=== PATIENT | female | born 1965 | race Caucasian/White ===

== ENCOUNTER 2018-11-30 09:56 | Emergency (ER) | payer SELFPAY ==
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
--- NOTE | 2018-11-30 10:53 | RAD ---
EXAM DESCRIPTION: Chest,1 View CLINICAL HISTORY: CHEST PAIN COMPARISON: March 08, 2008 IMPRESSION: Single AP portable upright view of the chest shows cardiac silhouette and pulmonary vasculature to be within normal limits. Lungs are normally aerated and clear. No obvious pleural effusion or pneumothorax is seen. Electronically signed by: Selwyn Albarado MD 11/30/2018 10:52 AM REPRESENTATIVE
[2018-11-30 11:14] VITALS: O2SAT 97
[2018-11-30 11:26] VITALS: BP 153/87; TEMP 98.1
== END 2018-11-30 11:25 | disposition home or self-care (01) ==
LOC: ER 09:56
DX: R07.89 Other chest pain (principal); F41.0 Panic disorder [episodic paroxysmal anxiety]; Z88.2 Allergy status to sulfonamides; Z82.49 Family history of ischemic heart disease and other diseases of the circulatory system

== ENCOUNTER 2020-01-14 12:35 | Emergency (ER) | payer OTHER ==
[2020-01-14] MEDS ORDERED: KETOROLAC TROMETHAMINE INJ 30 MG/ML VIAL IV ONE (12:56)
[2020-01-14] MEDS ORDERED: MORPHINE SULFATE INJ 10 MG/ML VIAL IV ONE ×2 (12:56→19:33)
--- NOTE | 2020-01-14 13:32 | RAD ---
EXAM DESCRIPTION: Ankle,Right 3 Views CLINICAL HISTORY: 54 years Female, injury COMPARISON: None. FINDINGS: 2 views of the right ankle show lateral subluxation of the tibiotalar joint with displaced medial and lateral malleolar fractures. Displaced posterior malleolar fracture is also likely present. No lateral view. IMPRESSION: Slightly limited exam due to lack of a lateral view with a probable trimalleolar right ankle fracture/subluxation as detailed above. Electronically signed by: Willis Jimenez MD 01/14/2020 1:30 PM [facility]
--- NOTE | 2020-01-14 13:33 | RAD ---
EXAM DESCRIPTION: Foot,Right 3 Views CLINICAL HISTORY: 54 years Female, injury COMPARISON: None. FINDINGS: 3 views of the right foot again show fracture/lateral subluxation of the right tibiotalar joint including probable trimalleolar fracture. No additional right foot fracture. IMPRESSION: Trimalleolar right ankle fracture/subluxation. Electronically signed by: Willis Jimenez MD 01/14/2020 1:32 PM [facility]
--- NOTE | 2020-01-14 13:35 | RAD ---
EXAM DESCRIPTION: Tibia/Fibula,Right CLINICAL HISTORY: 54 years Female, injury COMPARISON: None. FINDINGS: 2 views of the right tibia and fibula show lateral subluxation of the tibiotalar joint with displaced lateral and medial malleolar fractures. There is an additional bone fragment projecting over the tibiotalar joint on the AP view possibly representing a slightly displaced posterior malleolar fracture. Calcaneal enthesophyte formation. Postoperative changes related to previous right knee are plastic, partially visualized. IMPRESSION: Lateral subluxation of the tibiotalar joint with trimalleolar or bimalleolar right ankle fracture. CT would be helpful for confirmation of the posterior malleolar fracture if clinically relevant. Electronically signed by: Willis Jimenez MD 01/14/2020 1:33 PM [facility]
--- NOTE | 2020-01-14 14:53 | RAD ---
EXAM: XR Right Ankle Complete, 3 or More Views CLINICAL HISTORY: post reduction TECHNIQUE: Frontal, lateral and oblique views of the right ankle. Images obtained at 2:39 PM. COMPARISON: 1:07 PM the same day. FINDINGS: Bones/joints: There is mild spurring of the plantar and Achilles surfaces of the calcaneus. No interval change in impacted fracture of the distal fibula and distracted fracture of the medial malleolus. Probable nondisplaced fracture of the posterior malleolus. Stable medial tibial subluxation. Soft tissues: There is diffuse soft tissue swelling. IMPRESSION: Stable position and alignment of trimalleolar fracture with impaction and medial tibial subluxation. Electronically signed by: Layla Galindo MD 01/14/2020 2:52 PM [facility]
--- NOTE | 2020-01-14 18:38 | CT ---
EXAM DESCRIPTION: CT Lower Extremity CLINICAL HISTORY: 54 years Female R ankle injury TECHNIQUE: Noncontrast axial images acquired through the right ankle. Coronal and sagittal reformatted images also provided. This CT exam was performed according to our departmental dose-optimization program, which includes one or more of the following dose reduction techniques: automated exposure control, adjustment of the mA and/or kV according to patient size, and/or use of iterative reconstruction technique. COMPARISON: Correlation made with the radiographs obtained earlier the same day. FINDINGS: There are acute, trimalleolar fractures of the right ankle. There is posterolateral displacement of the distal fibular diaphyseal fracture. There is external rotation at the ankle joint with an impaction fracture of the fibular tip. There is external and posterior rotation of the major posterior malleolar fracture fragment. There is lateral displacement of the talus and distal medial malleolar fracture fragment relative to the tibial plafond. There are impaction fractures at the anterolateral corner of the tibial plafond. There is no complete dislocation. Suspected impaction fracture at the anterolateral corner of the talar dome. Acute, nondisplaced, intra-articular fracture at the plantar base of the first metatarsal. Acute, sagittally oriented, nondisplaced fracture through the lateral sesamoid. No other visualized acute fracture in the right foot. However, the toes are incompletely imaged. Joint spaces of the foot are preserved. Pronounced soft tissue swelling about the right ankle without soft tissue gas or foreign body. Incidental note made of an accessory navicular and os peroneum. Plantar and posterior calcaneal enthesophytes. No aggressive osseous lesion. IMPRESSION: Acute, displaced, trimalleolar fractures of the right ankle without dislocation. Additional impaction fractures at the fibular tip, anterolateral corner of the tibial plafond, and anterolateral corner of the talar dome. Acute, nondisplaced, intra-articular fracture of the plantar base of the first metatarsal. Acute, nondisplaced sagittally oriented fracture through the lateral sesamoid. Electronically signed by: Tammy Lazaro MD 01/14/2020 6:[address] [facility]
[2020-01-14] MEDS ORDERED: ONDANSETRON INJ 4 MG/2 ML VIAL IV ONE (20:00)
--- NOTE | 2020-01-14 20:49 | RAD ---
EXAM DESCRIPTION: XR Ankle, Right 3 Views CLINICAL HISTORY: 54 years Female post reduction TECHNIQUE: Three views of the right ankle are provided. COMPARISON: Comparison is made with the examination performed at 2:39 PM the same day. FINDINGS: There has been placement of a fiberglass splint. Again seen are acute, trimalleolar fractures of the right ankle. There is stable lateral subluxation at the ankle joint measuring up to approximately 1 cm without dislocation. Surrounding soft tissue swelling without soft tissue gas or foreign body. The visualized joints of the foot are preserved. Posterior and plantar calcaneal enthesophytes. No aggressive osseous lesion. IMPRESSION: Interval placement of a fiberglass splint. Acute trimalleolar right ankle fracture is again noted with stable lateral subluxation at the ankle joint. No dislocation. Electronically signed by: Tammy Lazaro MD 01/14/2020 8:48 PM [facility]
--- NOTE | 2020-01-14 21:03 | ED.PDOC ---
History of Present Illness - General Chief Complaint: Lower Extremity Injury Time Seen by Provider: 01/14/20 12:55 - History of Present Illness Initial Comments: Pt injured her R ankle , having pain , swelling , some bruises and deformity Occurred: just prior to arrival Method of Injury: fell, twisted Improving Factors: nothing Worsening Factors: movement Allergies/Adverse Reactions: Allergies Sulfamethoxazole w/Trimethoprim [From Bactrim] Allergy (Verified 11/30/18 10:07) Home Medications: Ambulatory Orders Naproxen [Naprosyn] 500 mg PO BID #10 tab 01/14/20 Tramadol HCl 50 mg PO QID #12 tab 01/14/20 Review of Systems - Review of Systems Constitutional: States: no symptoms reported EENTM: States: no symptoms reported Respiratory: States: no symptoms reported Cardiology: States: no symptoms reported Gastrointestinal/Abdominal: States: no symptoms reported Genitourinary: States: no symptoms reported Musculoskeletal: States: no symptoms reported Skin: States: no symptoms reported Neurological: States: no symptoms reported Endocrine: States: no symptoms reported Hematologic/Lymphatic: States: no symptoms reported Past Medical History (General) - Patient Medical History Hx Stroke: No Hx of COPD: No Hx Cardiac Disorders: No Hx Congestive Heart Failure: No Hx Hypertension: No Hx Diabetes: No Hx Gastroesophageal Reflux: Yes Hx Cancer: No Surgical History: other - Vaccination History Hx Tetanus, Diphtheria Vaccination: No Hx Influenza Vaccination: No Hx Pneumococcal Vaccination: No - Social History Hx Tobacco Use: No Hx Alcohol Use: No Hx Substance Use: No Hx Substance Use Treatment: No Hx Depression: No - Female History Patient is a Female of Child Bearing Age (10 -59 yrs old): Yes Patient : No - Menopause Family Medical History - Family History Mother Family History: Unknown Living Status: Unknown Physical Exam - Physical Exam General Appearance: Alert, No apparent distress, Well Developed, Well Groomed, Well Hydrated, Well Nourished Eyes, Ears, Nose, Throat: PERRL/EOMI, normal ENT inspection, TMs normal Neck: non-tender, full range of motion, supple, normal inspection Cardiovascular/Respiratory: regular rate, rhythm, normal breath sounds, no respiratory distress Back: normal inspection Thigh/Hip: normal inspection, no evidence of injury Ankle: bone tenderness, deformity - of R ankle , ecchymosis, limited ROM, pain, soft tissue tenderness, swelling Foot: bone tenderness, limited ROM Neuro/Tendon: normal sensation, normal motor functions, normal tendon functions, responds to pain Mental Status: alert, oriented x 3 Skin: normal color Progress - Progress Progress: 01/16/ Case d/w Dr Pickering ortho , wants to see the pt in the clinic the next morning . Pt during the stay her ankle dislocation was reduced by itself , CT scan was done no dislocation was found , d/w Dr Lazaro the radiologist alos , clinically the dislocated deformity was gone , [facility] During the visit saw the pt multiple time answer all the concern of the pt , reviewed X-ray with the pt. Told the pt that if symptoms gets worse , please come back to ER Follow up PCP and otho as soon as possible - EKG/XRAY/CT CT Ordered: Yes Departure - Departure Clinical Impression: Ankle fracture, Fracture of lower leg, Dislocation of ankle Disposition: Discharge to Home or Self Care Condition: Good Departure Forms: ED Discharge - Pt. Copy, Patient Portal Self Enrollment Instructions: DI for Leg Pain Diet: resume usual diet Activity: no exercise, no pushing/pulling with affected limb, other - No moving of Right ankle Prescriptions: Naproxen [Naprosyn] 500 mg PO BID #10 tab Tramadol HCl 50 mg PO QID #12 tab Home Medications: Ambulatory Orders Naproxen [Naprosyn] 500 mg PO BID #10 tab 01/14/20 Tramadol HCl 50 mg PO QID #12 tab 01/14/20 Additional Instructions: Elevation of the leg , follow up with Dr Pickering tomorrow morning in the clinic
[2020-01-14] MEDS ORDERED: traMADol HCL 50 MG (ER DISP) # 6 TABS PO ONE (21:14)
[2020-01-14 21:28] VITALS: BP 142/88; TEMP 98.1; O2SAT 97
== END 2020-01-14 21:28 | disposition home or self-care (01) ==
LOC: ER 12:35
DX: S82.851A Displaced trimalleolar fracture of right lower leg, initial encounter for closed fracture (principal); K21.9 Gastro-esophageal reflux disease without esophagitis; Z88.2 Allergy status to sulfonamides; W10.9XXA Fall (on) (from) unspecified stairs and steps, initial encounter; Y92.008 Other place in unspecified non-institutional (private) residence as the place of occurrence of the external cause
CPT/HCPCS: 73590; 73610; 73630; 73700; 94770; J1885; J2270; J2405